=== PATIENT | male | born 1970 | race Caucasian/White ===

== ENCOUNTER 2025-04-19 15:09 | Emergency (ER) | payer OTHER ==
[~2025-04-19] VITALS: Ht 167.6 cm; Wt 73.5 kg
[~2025-04-19 15:09] MED LIST: ASPI325 PO; CLIN150 PO; CRUTCH3 XX; CRUTCH4 XX; CYCL10 PO; Cleocin HCl150 MG PO; Crutch1 EACH MISC; Cyclobenzaprine5 MG PO; Flomax0.4 MG PO; HYDACE5 PO; HYDR1TAB94 PO; IBUP800; IBUP800 PO; INDO50 PO; KETO10 PO; META800 PO; NAPR550 PO; Naprosyn500 MG PO; Norco 5-325 Ta1 EACH PO; OXYACE10 PO; OXYACE5T PO; OXYC20ER PO; Percocet 5-3251 EACH PO; Peridex480 ML SS; Prozac20 MG PO; RXHYD5325 PO; Robaxin500 MG PO; TAMS.4ER PO; Ultram50 MG PO; Zofran Odt4 MG SL
[2025-04-19 15:46] VITALS: BP 135/81
== END 2025-04-19 16:01 | disposition home or self-care (01) ==
LOC: ER 15:09
DX: K64.5 Perianal venous thrombosis (principal); F17.210 Nicotine dependence, cigarettes, uncomplicated; Z88.0 Allergy status to penicillin; Z79.899 Other long term (current) drug therapy
CPT/HCPCS: 99282